=== PATIENT | male | born 1990 | race Caucasian/White ===

== ENCOUNTER 2025-02-03 13:52 | Outpatient (CLI) | payer MEDICAID, SELFPAY ==
--- NOTE | 2025-02-03 13:55 | XR_ITS ---
FINAL REPORT CLINICAL HISTORY: hx of pneumothorax Shortness of breath COMPARISON: None FINDINGS: PA and lateral views of the chest were obtained. Postoperative changes in the lung apices. No acute pulmonary density is evident. There is no evidence of effusion or other pleural disease. The mediastinum has a normal appearance. The cardiac silhouette is unremarkable. IMPRESSION: No acute findings. Reviewed, Interpreted and Dictated by Mirna Hollis MD Transcribed by Sandra Aragon Authenticated and [facility]
--- OUTSIDE RECORDS SUMMARY | 2025-02-03 13:55 | XMS_ITS | Clinical Summary ---
Author Organization [facility] Address [address] [place] [address] Phone Care Team Providers Care Syrup Filterer Name Role Phone Unavailable Primary Care Provider Unavailabl e Allergies Active Allergy Reactions Criticality Noted Date Comments Tramadol Other (See Comments) High 07/03/2018 seizure Medications oxyCODONE (OXY-IR) 15 mg Oral Tablet Take 1-2 Tablets by mouth every 4 hours as needed for Acute Pain (R52). 30 Tablet 08/30/2022 Active Active Problems Patient Care Coordination No te Formatting of this note is d ifferent from the original. Devon MONTERROSO [id number] Controlled report completed 04/02/2019 Ila Rivera RMA Pamela Jun 27, 2017 10:12 AM Devon 04/30/2017, 06/03/17 # UDS 10/02/16, FAIL 06/26/2017 NO CONTROLLED MEDICATIONS [facility] Problem Noted Date Diagnosed Date Acute pancreatitis, unspecif ied complication status, unspecified pancreatitis type 08/26/2022 Mood disorder 08/26/2022 Chronic pain syndrome 08/26/2022 Nicotine use disorder 05/02/2017 Underweight due to inadequate caloric intake Opiate use 10/02/2016 Pleural effusion, left 10/01/2016 Recurrent spontaneous pneumothorax 10/01/2016 SOB (shortness of breath) 10/01/2016 Anxiety 10/01/2016 Acute blood loss anemia 09/14/2016 Postoperative hypoxia 08/04/2016 Recurrent spontaneous pneumothorax 08/04/2016 History of pneumothorax 08/27/2013 Recurrent pneumonia 08/27/2013 Seizure disorder 01/29/2011 Chest wall pain 01/29/2011 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 Screening for other eye conditions 09/24/2008 Migraine Migraine headache Immunizations Immunization Administration Dates Next Due Influenza Vaccine Quadrivalent 05/02/2017(Deferr ed: Patient Refused) Surgical History Surgery Date Site/Laterality Comments PLEURAL SCARIFICATION numerous, last one in 2007- Dr Onofre THORACOSCOPY 09/13/2016 Left LEFT THORACOSCOPY PLEURECTOMY WITH CHEST TUBE PLACEMENT; Surgeon: Lalito Onofre MD; Location: [facility]; Service: General THORACOSCOPY 09/14/2016 Left LEFT THORACOSCOPY WITH REPLACEMENT OF CHEST TUBE; Surgeon: Lalito Onofre MD; Location: [facility]; Service: Thoracic LUNG SURGERY LUNG SURGERY Medical History Medical History Date Comments Pneumothorax Spontaneous pneumothorax 2006 Migraine headache Low back pain KERR (dyspnea on exertion) Seizures (HCC) 2009 Anxiety Panic attacks Family History Medical History Relation Name Comments No Known Problems Brother No Known Problems Father Arthritis Maternal Grandfather Diabetes Maternal Grandfather Heart Disease Maternal Grandfather Cancer Maternal Grandmother cancer High Cholesterol Mother No Known Problems Other No Known Problems Paternal Grandfather No Known Problems Paternal Grandmother No Known Problems Sister Allergies Neg Hx Anesth Problems Neg Hx Bleeding Prob Neg Hx Hearing Loss Neg Hx Migraines Neg Hx Thyroid Disease Neg Hx Relation Name Status Comments Brother Father Alive Pneumothorax Maternal Grandfather Maternal Grandmother Mother Alive Other Paternal Grandfather Paternal Grandmother Sister Social History Tobacco Use Types Packs/Day Years Used Date Smoking Tobacco: Every Day Cigarettes 0.3 10 Started: 08/04/2008; Last attempted to quit: 07/30/2016 Smokeless Tobacco: Former Chew Tobacco Cessation:Ready to Q uit: Not Asked; Counseling Given: Not Answered Comments:e cigs Alcohol Use Standard Drinks/Week Comments Not Currently 0 (1 standard drink = 0.6 oz pur e alcohol) Overall Financial Resource Strain (CARDIA) Answe r Date Recorded How hard is it for you to pa y for the very basics like food, housing, medical care, and heating? Not very hard 08/26/2022 PHQ-2 Answer Date Recorded PHQ-2 Total Score 0 08/26/2022 Exercise Vital Sign Answer Date Recorde d On average, how many days pe r week do you engage in moderate to strenuous exercise (like a brisk walk)? Patient declined On average, how many minutes do you engage in exercise at this level? Patient declined 08/26/2022 Hunger Vital Sign Answer Date Recorded Within the past 12 months, y ou worried that your food would run out before you got the money to buy more. Never true 08/26/19 23 Within the past 12 months, t he food you bought just didn't last and you didn't have money to get more. Never true 08/26/2022 PRAPARE - Transportation Answer Date Re corded In the past 12 months, has l ack of transportation kept you from medical appointments or from getting medications? No 11/2022 In the past 12 months, has l ack of transportation kept you from meetings, work, or from getting things needed for daily living? No 08/26/2022 Sex and Gender Information Value Date Recorded Sex Assigned at Not on file Legal Sex Male 7:51 AM EDT Gender Identity Not on file Sexual Orientation Not on file Obstetrics History Last Filed Vital Signs Vital Sign Reading Time Taken Comments Blood Pressure 117/63 08/30/2022 8:27 AM EST Pulse 82 08/30/2022 8:27 AM EST Temperature 36.5 C (97.7 F) 08/30/2022 8:27 AM EST Respiratory Rate 16 08/30/2022 8:27 AM EST Oxygen Saturation 94% 08/30/2022 8:27 AM EST Inhaled Oxygen Concentration - - Weight 68 kg (150 lb) 08/26/2022 4:06 PM EST Height 182.9 cm (6') 08/26/2022 4:06 PM EST Body Mass Index 20.34 08/26/2022 4:06 PM EST Plan of Treatment Health Maintenance Due Date Last Done Comments Hepatitis B Vaccine (1 of 3 - 19+ 3-dose series) 2008 Pneumococcal Vaccine 0-49 (1 of 2 - PCV) 2008 Annual Wellness Exam 03/03/2019 03/03/2018 COVID-19 Vaccine ( - 2023-2 5 season) 2024 Influenza Vaccine (#1) 2025 7 (Declined), 08/14/2016 (Declined), 04/29/2010 DTaP/TDaP/Td (3 - Td or Tdap) 02/01/2031, 01/20/2020 Meningococcal B Vaccine Aged Out No l onger eligible based on patient's age to complete this topic Goals Goal Patient Goal Type Associated Problems Recent Progress Patient-Stated? Author Eat better, exercise, reach an ideal body weight General No Kyra Robert RMA Stay Tobacco Free Lifestyle No Kyra Robert RMA Insurance [id number] [facility] [address] [place] [id number] [facility] PLAN BY [employer] [address] [place] [id number] [facility] PLAN BY [employer] Advance Directives For more information, please contact: [phone] * Full Code (Latest Code Status on File) Date Activated Date Inactivated Comments 08/28/2022 3:53 PM 08/30/2022 7:54 PM * Full Code Date Activated Date Inactivated Comments 10/02/2016 11:13 AM 10/07/2016 10:39 PM * Full Code Date Activated Date Inactivated Comments 09/13/2016 6:39 PM 09/19/2016 9:14 PM * Full Code Date Activated Date Inactivated Comments 08/03/2016 9:06 PM 08/04/2016 11:11 PM
== END 2025-02-03 23:59 | disposition home or self-care (01) ==
LOC: RAD 13:53
PROVIDERS: PCP Family Medicine; Visit Provider Family Medicine
DX: J93.83 Other pneumothorax (principal)
CPT/HCPCS: 71046